=== PATIENT | female | born 1965 | race Caucasian/White ===

== ENCOUNTER → 2021-03-28 | Outpatient (CLI) | payer BC | LOC: LAB 18:06 | DX: R50.9 Fever, unspecified (principal); Z20.822 Contact with and (suspected) exposure to COVID-19 ==

== ENCOUNTER → 2022-03-20 | Outpatient (CLI) | payer BC | LOC: LAB 18:00 | DX: Z20.822 Contact with and (suspected) exposure to COVID-19 (principal) ==